=== PATIENT | male | born 1950 | race Caucasian/White ===

== ENCOUNTER → 2018-03-07 | Outpatient (CLI) | payer MEDICARE | END | disposition home or self-care (01) | LOC: RAD 15:49 | PROVIDERS: ATTEND Internal Medicine | DX: R91.8 Other nonspecific abnormal finding of lung field (principal); J43.9 Emphysema, unspecified | CPT/HCPCS: 71250 ==

== ENCOUNTER → 2018-03-17 | Outpatient (CLI) | payer MEDICARE ==
[~2018-03-17] MED LIST: FLUO40CA2 PO; GADOBUTROL 7.5 MMOL/7.5 ML PFS ONE; LOSA25TA25 PO; TAMS0.4C2 PO
== END | disposition home or self-care (01) ==
LOC: PETCFH 07:34
PROVIDERS: ATTEND Internal Medicine
DX: J43.2 Centrilobular emphysema (principal); J90 Pleural effusion, not elsewhere classified; I71.4 Abdominal aortic aneurysm, without rupture; H70.92 Unspecified mastoiditis, left ear
CPT/HCPCS: 70553; 78815; A9552; A9585

== ENCOUNTER → 2018-03-23 | Outpatient (CLI) | payer MEDICARE ==
[~2018-03-23] MED LIST changes: -GADOBUTROL 7.5 MMOL/7.5 ML PFS ONE
== END | disposition home or self-care (01) ==
LOC: ROC 08:22
PROVIDERS: ATTEND Radiology Radiation Oncology
DX: Z02.9 Encounter for administrative examinations, unspecified (principal)

== ENCOUNTER → 2018-03-29 | Outpatient (CLI) | payer MEDICARE ==
[~2018-03-29] MED LIST changes: +LIDOCAINE-MPF 1%, 5ML ONE
== END | disposition home or self-care (01) ==
LOC: RAD 09:03
PROVIDERS: ATTEND Radiology Radiation Oncology
DX: C34.92 Malignant neoplasm of unspecified part of left bronchus or lung (principal)
CPT/HCPCS: 32555; 82150; 82945; 83615; 83986; 84157; 87070; 87075; 87102; 87116; 87205; 87206; 88112; 88305; 89051

== ENCOUNTER 2018-06-21 10:45 | Outpatient (CLI) | payer MEDICARE ==
[~2018-06-21 10:45] MED LIST changes: -LIDOCAINE-MPF 1%, 5ML ONE
== END 2018-06-21 23:59 | disposition home or self-care (01) ==
LOC: ROC 10:45 → EDSTATUS 03-27 12:52
PROVIDERS: ATTEND Radiology Radiation Oncology
DX: Z08 Encounter for follow-up examination after completed treatment for malignant neoplasm (principal); C34.12 Malignant neoplasm of upper lobe, left bronchus or lung
CPT/HCPCS: 99212; G0463

== ENCOUNTER → 2018-06-29 | Outpatient (CLI) | payer MEDICARE ==
[~2018-06-29] MED LIST changes: +OMNIPAQUE 350 MG/ML, 75ML BOTTLE ONE
== END | disposition home or self-care (01) ==
LOC: CFH 14:11
PROVIDERS: ATTEND Internal Medicine Hematology & Oncology
DX: C34.12 Malignant neoplasm of upper lobe, left bronchus or lung (principal); J43.2 Centrilobular emphysema; J98.11 Atelectasis; J90 Pleural effusion, not elsewhere classified; J98.6 Disorders of diaphragm; Z87.891 Personal history of nicotine dependence
CPT/HCPCS: 71260; Q9967

== ENCOUNTER 2018-07-07 08:35 | Outpatient (CLI) | payer MEDICARE ==
[~2018-07-07 08:35] MED LIST changes: -OMNIPAQUE 350 MG/ML, 75ML BOTTLE ONE
== END 2018-07-07 23:59 | disposition home or self-care (01) ==
LOC: ROC 08:35
PROVIDERS: ATTEND Radiology Radiation Oncology
DX: C34.12 Malignant neoplasm of upper lobe, left bronchus or lung (principal)
CPT/HCPCS: 99213; G0463